=== PATIENT | male | born 1935 | race Caucasian/White ===

== ENCOUNTER → 2024-02-06 | Outpatient (BNVA) | payer MEDICARE, MEDICAID, SELFPAY | END | disposition home or self-care (01) | PROVIDERS: PCP Internal Medicine; Referring Provider Internal Medicine; Visit Provider Urology | DX: N40.1 Benign prostatic hyperplasia with lower urinary tract symptoms (principal); N13.8 Other obstructive and reflux uropathy | CPT/HCPCS: 76872; 99212; G0463 ==

== ENCOUNTER 2024-04-23 14:33 | Outpatient (RCR) | payer MEDICARE, MEDICAID, SELFPAY | END 2024-05-19 23:59 | disposition home or self-care (01) | LOC: SCTC 14:33 | PROVIDERS: PCP Internal Medicine; Referring Provider Internal Medicine; Visit Provider Nurse Practitioner Family | DX: D47.2 Monoclonal gammopathy (principal) | CPT/HCPCS: 99212; G0463 ==

== ENCOUNTER → 2024-07-05 | Outpatient (BNVA) | payer MEDICARE, MEDICAID, SELFPAY | END | disposition home or self-care (01) | PROVIDERS: PCP Internal Medicine; Referring Provider Internal Medicine; Visit Provider Urology | DX: N40.1 Benign prostatic hyperplasia with lower urinary tract symptoms (principal); R39.12 Poor urinary stream | CPT/HCPCS: 51741; 51798 ==

== ENCOUNTER → 2024-08-07 | Outpatient (CLI) | payer MEDICARE, MEDICAID, SELFPAY ==
--- NOTE | 2024-08-07 12:20 | XR_ITS ---
Examination: Bone densitometry Date and time of exam:August 07, 2024 1229 hours INDICATIONS: 88-year-old male with diagnosis age related osteoporosis, calcium 5 years Technique: Lumbar spine and hip total bone mineralization values of an calculated. Peak reference and age match control results have been displayed. Findings: Lumbar spine total bone mineralization is1.087 gm/cm2. This is 0.0 standard deviations at peak reference. Hip total bone mineralization is 0.964 gm/cm2 This is 0.7 standard deviations below peak reference. Impression: There is normal mineralization based on lumbar spine measurements. There is osteopenia based on hip measurements
[2024-08-07 13:54] LABS: Basophils # (Auto) 0.1 Thou/mm3 (0.0-0.2); Basophils % (Auto) 1 % (0-2.5); Eosinophils # (Auto) 1.4 Thou/mm3 (0.0-0.5); Eosinophils % (Auto) 12 % (0-10); Hematocrit 38.3 % (41.0-53.0); Hemoglobin 13.5 g/dL (13.5-16.0); Immature Granulocytes % (Auto) 0 % (0-0); Immature Granulocytes Auto 0.03 Thou/mm3 (0.00-0.00); Lymphocytes # (Auto) 3.3 Thou/mm3 (1.0-4.8); Lymphocytes % (Auto) 29 % (10-50); Mean Corpuscular HGB Conc 35.2 g/dl (31.0-37.0); Mean Corpuscular Hemoglobin 31.5 pg (25.0-35.0); Mean Corpuscular Volume 90 fL (80-100); Monocytes # (Auto) 1.3 Thou/mm3 (0.0-0.8); Monocytes % (Auto) 12 % (0-12); Neutrophils # (Auto) 5.3 Thou/mm3 (1.8-7.7); Neutrophils % (Auto) 47 % (37-80); Nucleated Red Blood Cell % 0 /100 WBC (0); Platelet Count 200 Thou/mm3 (140-440); RDW Standard Deviation 41.3 fL (35.1-43.9); Red Blood Count 4.28 Miln/mm3 (4.50-5.90); White Blood Count 11.4 Thou/mm3 (3.8-10.6)
[2024-08-07 14:16] LABS: Alanine Aminotransferase 19 U/L (10-49); Albumin, Serum 4.3 gm/dL (3.4-4.8); Albumin/Globulin Ratio 1.3 (1.2-2.2); Alkaline Phosphatase 74 U/L (46-116); Anion Gap 11 (7-16); Aspartate Amino Transferase 26 U/L (0-34); BUN/Creatinine Ratio 17 Ratio (12-20); Bilirubin,Total 0.5 mg/dL (0.3-1.2); Blood Urea Nitrogen 20 mg/dL (9-23); Carbon Dioxide 25.3 mMol/L (20.0-31.0); Chloride 97 mMol/L (98-107); Creatinine (Component) 1.2 mg/dL (0.6-1.3); Globulin 3.3 gm/dL (2.3-3.5); Glucose 107 mg/dL (74-106); Osmolality,Calculated 268 (275-295); Potassium 3.8 mMol/L (3.4-5.1); Sodium 133 mMol/L (136-145); Total Protein 7.6 gm/dL (5.7-8.2); eGFR 58 See Note
[2024-08-16 03:04] LABS: Albumin 4.2 g/dL (3.8-4.8); Alpha-1-Globulin 0.2 g/dL (0.2-0.3); Alpha-2-Globulin 0.9 g/dL (0.5-0.9); Beta-1-Globulin 0.5 g/dL (0.4-0.6); Beta-2-globulin 0.4 g/dL (0.2-0.5); Gamma Globulin 1.5 g/dL (0.8-1.7); Immunoglobulin A 201 mg/dL (70-320); Immunoglobulin G 1788 mg/dL (600-1540); Kappa Light Chain, Free 113.1 mg/L (3.3-19.4); Lambda Light Chain, Free 65.3 mg/L (5.7-26.3)
[2024-08-16 06:52] LABS: Beta 2 Microglobulin 2.73 mg/L (< OR = 2.51); Immunoglobulin M 61 mg/dL (50-300); Kappa/Lambda, Free Ratio 1.73 (0.26-1.65); Protein, total, serum 7.7 g/dL (6.1-8.1)
== END | disposition home or self-care (01) ==
LOC: CDIM 12:15 → SCTO 12:37
PROVIDERS: PCP Internal Medicine; Referring Provider Nurse Practitioner Family; Visit Provider Radiology Diagnostic Radiology
DX: M85.88 Other specified disorders of bone density and structure, other site (principal); D47.2 Monoclonal gammopathy
CPT/HCPCS: 36415; 77080; 80053; 82232; 82784; 83521; 84155; 84165; 85025; 86334

== ENCOUNTER 2024-08-21 14:38 | Outpatient (RCR) | payer MEDICARE, MEDICAID, SELFPAY ==
--- NOTE | 2024-08-21 16:49 | CTCFLWUP_ITS ---
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 Bobo is here at the [facility]. Mr. Bobo is clinically doing well. Labs from 04/12/2024 show hemoglobin 13.3, MCV 92, creatinine clearance 1.0, calcium 9.5, no monoclonal proteins detected by immunofixation studies. Denies any new complaints. Denies any cough, chest pain, abdominal pain or leg cramps. Has good appetite and good energy levels. HISTORY: Stanley Bobo is a 88-year-old [place] speaking male with history of benign prostatic hypertrophy, hypertension was referred to [facility] [place] ago because of leukocytosis and thrombocytopenia. 08/07/2018: Platelet count 121,000 11/28/2018: WBC 21.1, platelets 187,000. 12/20/2018: WBC 18.1, platelets 220,000. 03/20/2019: WBC 13.1, platelets 245,000. 06/26/2019: Bone marrow biopsy and aspiration? 07/17/2019: PET CT scan? 07/23/2019: WBC 12.0, ANC 6.2, monocytes 1.3, hemoglobin 13.1, platelets 299,000. 12/25/2019: WBC 14.4, ANC 7.8, hemoglobin 13.2, platelets 149,000. IgG 1603 (600?1540). Immunofixation electrophoresis did not show any monoclonal proteins. 07/22/2020: WBC 11.7, ANC 5.2, hemoglobin 13.2, hematocrit 38.3, MCV 91, platelets 155,000. Creatinine 0.9. Calcium 9.4. IgM 44, IgA 155, IgG 1525. 04/14/2021: WBC 15.0, ANC 9.5, hemoglobin 13.5, platelets 337,000, IgG 1635. 04/21/2021: Peripheral blood flow cytometry? 08/17/2021: WBC 13.7, ANC 7.2, monocytes 1.5, hemoglobin 13.2, MCV 92, platelets 157,000, creatinine 0.9, calcium 10.3. Myeloma panel labs are pending. 08/17/2021: WBC is 13.7, ANC is 7.2, hemoglobin 13.2, platelets 157,000, IgG 1650. No monoclonal proteins detected on immunofixation study. 02/18/2022: WBC 12.4, ANC 5.5, hemoglobin 12.7, MCV 89, platelets 133,000, IgG 1768. No monoclonal protein detected on immunofixation electrophoresis 06/14/2023: WBC 14.2, ANC 7.0, hemoglobin 13.3, MCV 92, platelets 305,000. Myeloma panel labs are pending. 10/12/2023: WBC 15.2, ANC 9.1, hemoglobin 13.4, MCV 90, platelets 263,000, IgG 1999. No monoclonal protein detected by immunofixation studies. 04/12/2024: WBC 12.4, ANC 4.6, hemoglobin 13.3, MCV 92, platelets 239,000, creatinine 1.0, calcium 9.5, IgG 1808. No monoclonal protein detected by immunofixation studies OTHER MEDICAL HISTORY/CONDITIONS: FAMILY HISTORY: ?Clone Family Hx? SOCIAL HISTORY: MEDICATIONS: 1. alendronate - 70 mg 1 tab Weekly 2. Calcium 600 + D(3) - 600 mg-10 mcg (400 unit) 1 tab Twice a Day 3. finasteride - 5 mg 1 tab Daily 4. losartan-hydrochlorothiazide - 50-12.5 mg 1 tab Daily 5. tamsulosin - 0.4 mg 1 Capsule Daily 6. TylenoL - 500 mg tab As needed?[facility] Meds? Medications Last Reconciled by Iesha Kim MA on 08/21/2024 ALLERGIES: No Known Drug Allergies REVIEW OF SYSTEMS: A complete 14-point review of systems was performed and is negative except as noted in interval history. PHYSICAL EXAMINATION: VITAL SIGNS: Temperature?99, B/P?129/74, Oxygen?Saturation?95% Weight?147?lbs PAIN: 8 - Very severe pain ECOG Performance Status: 0 - Asymptomatic and fully active GENERAL APPEARANCE: Appears well, in no apparent distress, appropriately interactive. HEENT: Normocephalic, no temporal wasting, normal conjunctiva, no scleral icterus, normal hearing, lips without lesions, neck normal range of motion. CARDIOVASCULAR: Not assessed. PULMONARY: Normal respiratory effort, no respiratory distress or use of accessory muscles, speaking in full sentences, no tachypnea. EXTREMITIES: No pedal edema or cyanosis. SKIN: Normal skin appearance. NEUROLOGIC: Alert and oriented x4. PSHYCHIATRIC: Appropriate affect, mood normal, behavior normal, intact thought and speech. LABORATORY DATA: I have personally reviewed and interpreted each of the patient?s relevant lab tests, abnormal findings are below: Date 08/07/24 ??GLUCOSE,RANDOM?(mg/dL) 107?H ??BLOOD?UREA?NITROGEN?(mg/dL) 20 ??CREATININE?(mg/dL) 1.20 ??SODIUM?(mmol/L) 133?L ??POTASSIUM?(mmol/L) 3.8 ??CHLORIDE?(mmol/L) 97?L ??CrCl?(CandG)?(ml/min) 41.50 ??AST/SGOT?(Unit/L) 26 ??ALT/SGPT?(Unit/L) 19 ??ALKALINE?PHOSPHATASE?(Unit/L) 74 ??BILIRUBIN,?TOTAL?(mg/dL) 0.5 ??PROTEIN?TOTAL?(gm/dl) 7.6 ??ALBUMIN,?SERUM?(gm/dl) 4.3 ??GLOBULIN?(gm/dl) 3.3 ??ALBUMIN/GLOBULIN?RATIO 1.3 ??CALCIUM,?SERUM?(mg/dL) 10.0 ??CALCIUM?SERUM?(CORRECTED)?(mg/dL) 10.0 ASSESSMENT/PLAN: Monoclonal gammopathy of undetermined significance. No monoclonal proteins detected on immunofixation study. Previous bone marrow biopsy showed 8 to 10% kappa restricted plasma cells. Reviewed kappa lambda chain ratios and are stable Patient has stable hemoglobin and creatinine Offered to do bone marrow biopsy as last was was done in 2020 1% risk every 1 year for developing into multiple myeloma Will do bone scan as patient not willing for bone biopsy and want to continue following with oncology BPH Hypertension CBC CMP SPEP UPEP serum amino pheresis [place] lambda chain ratio bone scan RETURN TO CLINIC: I will see him back in the clinic in 2 months. BILLING AND COMPLIANCE: I reviewed external records from providers outside my specialty as summarized above. I spent a total of 50 minutes on this patient?s care on the day of their visit excluding time spent related to any billed procedures. This time includes time spent with the patient as well as time spent documenting in the medical record, reviewing patients records and tests, obtaining history, placing orders, communicating with other healthcare professionals, counseling the patient, family or caregiver, and/or care coordination for the diagnoses above. Electronically Signed by: Rodrigo Dover MD T: 4:47 PM CC: PCP: Win Castañeda Referring: Win Castañeda This document was completed utilizing speech recognition software. Grammatical errors, random word insertions, pronoun errors, and incomplete sentences are an occasional consequence of this system due to software limitations, ambient noise, and hardware issues. Any formal questions or concerns about the content, text or information contained within the body of this dictation should be directly addressed to the provider for clarification.
== END 2024-09-17 23:59 | disposition home or self-care (01) ==
LOC: SCTC 14:38
PROVIDERS: PCP Internal Medicine; Referring Provider Internal Medicine; Visit Provider Internal Medicine Hematology & Oncology
DX: D47.2 Monoclonal gammopathy (principal); N40.0 Benign prostatic hyperplasia without lower urinary tract symptoms; I10 Essential (primary) hypertension
CPT/HCPCS: 99213; G0463

== ENCOUNTER → 2024-09-07 | Outpatient (BNVA) | payer MEDICARE, MEDICAID, SELFPAY | END | disposition home or self-care (01) | PROVIDERS: PCP Internal Medicine; Referring Provider Internal Medicine; Visit Provider Urology | DX: N40.1 Benign prostatic hyperplasia with lower urinary tract symptoms (principal); N13.8 Other obstructive and reflux uropathy; N28.1 Cyst of kidney, acquired; E78.5 Hyperlipidemia, unspecified; M81.0 Age-related osteoporosis without current pathological fracture; I10 Essential (primary) hypertension; E66.9 Obesity, unspecified; Z68.26 Body mass index [BMI] 26.0-26.9, adult | CPT/HCPCS: 81003; 99212; G0463 ==

== ENCOUNTER → 2024-10-16 | Outpatient (CLI) | payer MEDICARE, MEDICAID, SELFPAY ==
[2024-10-16 13:21] LABS: Basophils # (Auto) 0.1 Thou/mm3 (0.0-0.2); Basophils % (Auto) 1 % (0-2.5); Eosinophils # (Auto) 1.1 Thou/mm3 (0.0-0.5); Eosinophils % (Auto) 9 % (0-10); Hematocrit 38.4 % (41.0-53.0); Hemoglobin 13.5 g/dL (13.5-16.0); Immature Granulocytes % (Auto) 0 % (0-0); Immature Granulocytes Auto 0.05 Thou/mm3 (0.00-0.00); Lymphocytes # (Auto) 2.7 Thou/mm3 (1.0-4.8); Lymphocytes % (Auto) 23 % (10-50); Mean Corpuscular HGB Conc 35.2 g/dl (31.0-37.0); Mean Corpuscular Hemoglobin 31.7 pg (25.0-35.0); Mean Corpuscular Volume 90 fL (80-100); Monocytes # (Auto) 1.2 Thou/mm3 (0.0-0.8); Monocytes % (Auto) 10 % (0-12); Neutrophils # (Auto) 6.8 Thou/mm3 (1.8-7.7); Neutrophils % (Auto) 57 % (37-80); Nucleated Red Blood Cell % 0 /100 WBC (0); Platelet Count 224 Thou/mm3 (140-440); RDW Standard Deviation 41.8 fL (35.1-43.9); Red Blood Count 4.26 Miln/mm3 (4.50-5.90); White Blood Count 11.9 Thou/mm3 (3.8-10.6)
[2024-10-16 13:39] LABS: Alanine Aminotransferase 13 U/L (10-49); Albumin, Serum 4.6 gm/dL (3.4-4.8); Albumin/Globulin Ratio 1.3 (1.2-2.2); Alkaline Phosphatase 74 U/L (46-116); Anion Gap 8 (7-16); Aspartate Amino Transferase 24 U/L (0-34); BUN/Creatinine Ratio 14 Ratio (12-20); Bilirubin,Total 0.4 mg/dL (0.3-1.2); Blood Urea Nitrogen 17 mg/dL (9-23); Calcium 10.1 mg/dL (8.3-10.6); Calcium (Corrected) 10.1 mg/dL (8.5-10.1); Carbon Dioxide 27.8 mMol/L (20.0-31.0); Chloride 96 mMol/L (98-107); Creatinine (Component) 1.2 mg/dL (0.6-1.3); Globulin 3.6 gm/dL (2.3-3.5); Glucose 126 mg/dL (74-106); Osmolality,Calculated 268 (275-295); Potassium 3.8 mMol/L (3.4-5.1); Sodium 132 mMol/L (136-145); Total Protein 8.2 gm/dL (5.7-8.2); eGFR 58 See Note
[2024-10-20 17:49] LABS: Albumin, Random Urine 100 %; Alpha 1 Globulin, Random Urine 0 %; Alpha 2 Globulin, Random Urine 0 %; Beta Globulin, Random Urine 0 %; Gamma Globulin, Random Urine 0 %; Protein,Total,Random Urine 4 mg/dL (5-25); Protein/Creatinine Ratio 89 mg/g creat (25-148)
[2024-10-21 19:51] LABS: Albumin 4.2 g/dL (3.8-4.8); Alpha-1-Globulin 0.3 g/dL (0.2-0.3); Alpha-2-Globulin 0.9 g/dL (0.5-0.9); Beta-1-Globulin 0.5 g/dL (0.4-0.6); Beta-2-globulin 0.4 g/dL (0.2-0.5); Gamma Globulin 1.6 g/dL (0.8-1.7); Immunoglobulin A 198 mg/dL (70-320); Immunoglobulin G 1919 mg/dL (600-1540); Lambda Light Chain, Free 80.1 mg/L (5.7-26.3)
[2024-10-22 07:23] LABS: Creatinine, Random Urine 45 mg/dL (20-320); Protein/Creatinine Ratio mg/mg 0.089 (0.025-0.148)
[2024-10-22 07:26] LABS: Beta 2 Microglobulin 2.69 mg/L (< OR = 2.51); Immunoglobulin M 71 mg/dL (50-300); Kappa/Lambda, Free Ratio 1.29 (0.26-1.65); Protein, total, serum 7.9 g/dL (6.1-8.1)
== END | disposition home or self-care (01) ==
PROVIDERS: PCP Family Medicine; Referring Provider Internal Medicine Hematology & Oncology; Visit Provider Internal Medicine Hematology & Oncology
DX: D47.2 Monoclonal gammopathy (principal)
CPT/HCPCS: 36415; 80053; 82232; 82570; 82784; 83521; 84155; 84156; 84165; 84166; 85025; 86334

== ENCOUNTER → 2024-10-16 | Outpatient (CLI) | payer MEDICARE, MEDICAID, SELFPAY ==
--- NOTE | 2024-10-16 11:30 | XR_ITS ---
Examination: Bone scan whole body, radioisotope Date and time of exam: October 16, 2024 10:53 AM INDICATIONS: Diagnosis monoclonal gammopathy, mottled tip the catheter restricted plasma cells leukocytosis neutropenia Technique: Study has been performed with intravenous administration of 22.7 mci 99M technetium MDP. Anterior, posterior whole body images are obtained. Images have been obtained including the lower extremities. Findings: Minor asymmetric uptake about the knees and shoulders No findings diagnostic for osseous metastatic disease IMPRESSION: No findings diagnostic for osseous metastatic disease
== END | disposition home or self-care (01) ==
PROVIDERS: Referring Provider Internal Medicine Hematology & Oncology; Visit Provider Internal Medicine Hematology & Oncology
DX: D47.2 Monoclonal gammopathy (principal)
CPT/HCPCS: 78306; A9503

== ENCOUNTER 2024-10-30 12:59 | Outpatient (RCR) | payer MEDICARE, MEDICAID, SELFPAY | END 2024-11-17 23:59 | disposition home or self-care (01) | LOC: SCTC 12:59 | PROVIDERS: PCP Family Medicine; Referring Provider Family Medicine; Visit Provider Nurse Practitioner Family | DX: D47.2 Monoclonal gammopathy (principal); N40.0 Benign prostatic hyperplasia without lower urinary tract symptoms; I10 Essential (primary) hypertension; E78.5 Hyperlipidemia, unspecified | CPT/HCPCS: 99212; G0463 ==